=== PATIENT | female | born 1940 | race Caucasian/White ===

== ENCOUNTER 2016-12-12 12:01 | Day surgery (SDC) | payer MEDICARE, OTHER ==
[~2016-12-12] VITALS: Ht 160 cm; Wt 62.1 kg
[~2016-12-12 12:01] MED LIST: 0.9% Sodium Chloride 1,000 ML IV SCH; AMLO5TAB2 PO; LOVA20TA PO; OMEP10CA4 PO; Sodium Chloride LOK Flush 10 mL Syringe IV PRN; fentaNYL-PF 50 mCg/mL 2 mL Inj IVPUSH PRN
[2016-12-12 12:38] VITALS: BP 161/95; PULSE 84; RESP 16; O2SAT 99
[2016-12-12 14:22] VITALS: BP 137/82; PULSE 70; RESP 12; O2SAT 99
[2016-12-12 14:32] VITALS: BP 124/74; PULSE 64; RESP 16; O2SAT 98
[2016-12-12 14:42] VITALS: BP 128/69; PULSE 60; RESP 12; O2SAT 96
[2016-12-12 14:49] VITALS: BP 115/74; PULSE 76; RESP 14; O2SAT 92
--- NOTE | 2016-12-12 23:22 | ENDO ---
[address] [address] ENDOSCOPY PROCEDURE PATIENT: MATTHEW NOVAK : 1940 MR#: [id number] ADMIT: 12/12/2016 JOB ID: [id number] DATE OF PROCEDURE: 12/12/2016 PRIMARY PROVIDER: Basilio Mcadams MD. PROCEDURE: Esophagogastroduodenoscopy with biopsy and a colonoscopy with hot snare polypectomy. INDICATIONS: A 76-year-old female with symptoms of hoarseness and intermittent dysphagia. Reflux is suspected. She also has a personal history of colon polyps. Both EGD and colonoscopy are pursued. EQUIPMENT: 1. GIF-H180. 2. PCF-H190L. SEDATION: 1. Versed 7 mg. 2. Fentanyl 125 mcg. COMPLICATIONS: None identified. BOWEL PREPARATION: Fair, adequate exam. PROCEDURE INFORMATION: After the risks and benefits were explained, written and verbal informed consent was obtained. The patient was brought into the endoscopy suite and placed into the left lateral decubitus position. Sedation was achieved using the above-stated medications with the addition of oxygen via nasal cannula. The scope was introduced into the mouth through the bite block and advanced under direct visualization through the oropharynx, esophagus, stomach, and onto the second portion of the duodenum. The scope was slowly withdrawn to carefully examine the mucosa for any defects or lesions. Retroflexed views were accomplished in the stomach. The stomach was decompressed. The scope was removed from the patient who tolerated the procedure well. The patient was then turned around. A digital rectal examination accomplished. No significant pathology appreciated apart from some mild internal hemorrhoids. The scope was introduced into the rectum and advanced under direct visualization to the level of the cecum, as identified by the appendiceal orifice and ileocecal valve. The scope was slowly withdrawn to carefully examine the mucosa for any defects or lesions. Multiple direct views were made through the dentate line for exclusion of pathology. The colon was decompressed. The scope was removed from the patient who tolerated the procedure well. FINDINGS: 1. Duodenum: No mucosal pathology appreciated from the bulb through to the second portion. 2. Stomach: The patient had a mild diffuse gastropathy. No outlet obstruction. No ulcers. No mass lesions. Retroflexed views of the LES were unremarkable. 3. Esophagus: The squamocolumnar junction correlated with the top of the gastric folds. The GE junction was at 35 cm from the incisors. No acute erosive changes. No strictures. No mass lesions. The patient, however, did have a subjectively relaxed lower esophageal sphincter mechanism and a very subtle sliding hiatal hernia. The remainder of the esophagus was unremarkable. 4. Colon: In the ascending colon there was an approximately 8 mm sessile polyp removed with hot snare. This was too large to be aspirated through the accessory channel of the scope and had to be sectioned with the snare prior to suction. There was a smaller, perhaps 5 mm, polyp at the rectosigmoid region also removed with hot snare. The patient had an exceedingly tortuous and difficult navigation through the sigmoid. Some mild diverticulosis was seen in this region as well. ENDOSCOPIC DIAGNOSES: 1. Subtle sliding hiatal hernia with subjectively relaxed lower esophageal sphincter tone. 2. Minimal gastropathy. 3. Colon polyps. 4. Diverticulosis. 5. Hemorrhoids. RECOMMENDATIONS: 1. Await histopathology. 2. Continue omeprazole. 3. Again, it may be reasonable to consider altering blood pressure therapy with respect to the amlodipine as this can relax the lower esophageal sphincter tone. Perhaps on an alternative blood pressure medication she may only require the once daily omeprazole. If the decision is made to continue amlodipine long-term then she may actually require b.i.d. omeprazole to control her reflux symptoms. 4. I would consider repeat colonoscopy in five years' time.
--- NOTE | 2016-12-16 10:09 | PATH ---
SURGICAL PATHOLOGY Attending Physician:Cecilio Hernadez CASE STATUS: Signed Out PATIENT NAME: MATTHEW NOVAK PID: [id number] : 1940 DATE COLLECTED:12/12/2016 00:00 SPECIMEN: 1: Gastric, Biopsy 2: Colon, Biopsy 3: Colon, Biopsy CLINICAL HISTORY: 1: GASTRIC BIOPSY 2: ASCENDING COLON POLYP X1 3: RECTOSIGMOID POLYP X1 FINAL DIAGNOSIS: 1.GASTRIC BIOPSY: FRAGMENT OF FUNDIC MUCOSA WITH MUCOSAL HYPEREMIA, BUT NEGATIVE FOR SIGNIFICANT INFLAMMATION. Negative for evidence of Helicobacter. Negative for intestinal metaplasia. Negative for dysplasia and malignancy. 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 3.RECTOSIGMOID POLYP: TUBULAR ADENOMA INVOLVING BOTH BIOPSY FRAGMENTS. ICD10 CODE D12.2 GROSS DESCRIPTION: The specimen is received in three formalin filled containers labeled with the patient's name. 1). The specimen is sublabeled "gastric" and consists of a 0.3 x 0.3 x 0.2 CM portion of tissue which is entirely submitted in cassette 1A. 2). The specimen is sublabeled "ascending colon polyp" and consists of 3 portions of tissue which aggregate to 0.7 x 0.7 x 0.4 CM. The specimen is entirely submitted in cassette 2A. 3). The specimen is sublabeled "rectosigmoid polyp" and consists of 2 tiny portions of tissue which aggregate to 0.3 x 0.3 x 0.3 CM. The specimen is entirely submitted in cassette 3A. 12/13/2016 [facility] MICRO DESCRIPTION: See diagnosis. ICD-9 CODES: CPT CODES: 1: 56802 2: 44342 3: 77031 Electronically Signed Out Sathish Gautam MD [facility] Pathology [facility] [address], [place] [address] Technical component performed at [facility], [address] [place] [address] Ave[address], [place], [address]
== END 2016-12-12 23:59 | disposition home or self-care (01) ==
LOC: END 12:01
PROVIDERS: ATTEND Internal Medicine Gastroenterology
DX: Z12.11 Encounter for screening for malignant neoplasm of colon (principal); Z86.010 Personal history of colon polyps; D12.2 Benign neoplasm of ascending colon; D12.7 Benign neoplasm of rectosigmoid junction; K57.30 Diverticulosis of large intestine without perforation or abscess without bleeding; K64.8 Other hemorrhoids; K31.89 Other diseases of stomach and duodenum; K44.9 Diaphragmatic hernia without obstruction or gangrene; R13.10 Dysphagia, unspecified
CPT/HCPCS: 43239; 45385; 88305; 99153; G0500; J2250; J3010; J7030